=== PATIENT | female | born 1950 | race Caucasian/White ===

== ENCOUNTER 2017-04-29 08:04 | Day surgery (SDC) | payer OTHER ==
--- NOTE | 2017-04-25 12:03 | GHP ---
[f rep st] PREOP HISTORY AND PHYSICAL DATE OF PROCEDURE: 04/29/2017. PREPROCEDURE DIAGNOSIS: Left neck lymphadenopathy. HISTORY OF PRESENT ILLNESS: The patient is a 66-year-old woman who presented to the clinic with persistent posterior cervical lymphadenopathy. She has been aware of this since October 2016 when she had a routine physical exam done by her primary care. She reports the enlarged lymph nodes wax and wane in size. She denies any tenderness to palpation. She denies any recent illness, animal exposure, or travel. She denies a personal family history of cancer. She had 2 root canals and a tooth extraction performed in the last 6 months. She has had recent appointments with an promos executive producer and a dentist. She had a neck CT performed, which showed very extensive bilateral adenopathy in the subclavian, supraclavicular, jugular chain, posterior triangle, and submandibular regions. PAST MEDICAL HISTORY: Colon polyps, elevated glucose, hypertension, obesity, osteopenia, hearing loss, varicose veins, vitamin D deficiency. PAST SURGICAL HISTORY: Bilateral breast biopsies, benign; diagnostic thoracoscopy; tonsillectomy. MEDICATIONS: Irbesartan. ALLERGIES: Cipro. FAMILY HISTORY: Mother with dementia. Father with hypertension and prostate cancer. Aunt of lung cancer at 68. SOCIAL HISTORY: She is a former smoker. She denies recreational drug use. She denies alcohol use. REVIEW OF SYSTEMS: 10-point review of systems negative aside from HPI. PHYSICAL EXAMINATION: GENERAL: Well-developed, well-nourished woman, in no acute distress. HEENT: Normocephalic, atraumatic. No hearing deficits. Pupils equal and round. No scleral icterus. Mucous membranes moist. NECK: Trachea midline. RESPIRATORY: Clear to auscultation bilaterally. No increased work of breathing. CARDIOVASCULAR: Regular rate and rhythm. No peripheral edema. MUSCULOSKELETAL: Normal gait. Normal nails. SKIN: Warm and dry. PSYCH: Mood and affect normal. NEURO: Grossly intact. LYMPH: Bilateral posterior chain cervical lymphadenopathy. Nontender to palpation. No evidence of supraclavicular lymphadenopathy. Small palpable axillary lymph nodes bilaterally, not grossly enlarged. IMPRESSION AND PLAN: A 66-year-old woman with persistent posterior cervical lymphadenopathy, no identifiable etiology. We recommend excisional biopsy. We discussed risks including, but not limited to, heart attack, stroke, blood clots or . We discussed risk of infection, bleeding, or swelling. She had her questions answered to her satisfaction. She understands the risks and would like to proceed. The patient additionally seen by Dr. Ashley Strong, who agrees with the above impression and plan. /[id number]/MODL MTDD
[2017-04-29] MEDS ORDERED: ceFAZolin 2 GM/DEXTROSE 100 ML IV ONE (08:14)
[2017-04-29] MEDS ORDERED: LR 1,000 ML IV ONE (08:16)
[2017-04-29 08:29] VITALS: PULSE 63
[2017-04-29] MEDS ORDERED: ceFAZolin 3 GM in D5W 100 ML IV ONE (08:30)
--- NOTE | 2017-04-29 08:49 | PDHPUP ---
History & Physical Update H&P update statement: This history and physical update is based on an assessment of the patient which was completed after admission or registration (within 24 hours), but prior to the surgery/procedure. H&P update: H&P reviewed & patient examined, no change in patient's condition since H&P completed
[2017-04-29] MEDS ORDERED: HYDROmorphONE/DILAUDID 1 MG/ML SYR IVP PRN (08:59)
[2017-04-29] MEDS ORDERED: MIDAZOLAM 2 MG/2 ML VIAL ONE (08:59)
[2017-04-29] MEDS ORDERED: ALBUTEROL 3 ML DEYVIAL IH PRN (08:59)
[2017-04-29] MEDS ORDERED: NALOXONE HCL 0.4 MG/ML INJ IVP PRN (08:59)
[2017-04-29] MEDS ORDERED: ONDANSETRON 4 MG/2 ML VIAL IVP PRN (08:59)
[2017-04-29] MEDS ORDERED: LABETALOL HCL 50 MG/10 ML SYR IVP PRN (08:59)
[2017-04-29] MEDS ORDERED: fentaNYL 100 MCG/2 ML INJ IVP PRN (08:59)
[2017-04-29] MEDS ORDERED: MIDAZOLAM 2 MG/2 ML VIAL IVP ONE (08:59)
--- NOTE | 2017-04-29 09:00 | PDANEPAE ---
ANE History of Present Illness Left Neck biopsy ANE Past Medical History - Cardiovascular History Hx Hypertension: Yes Hx Arrhythmias: No Hx Chest Pain: No Hx Coronary Artery / Peripheral Vascular Disease: No Hx CHF / Valvular Disease: No Hx Palpitations: No - Pulmonary History Hx COPD: No Hx Asthma/Reactive Airway Disease: No Hx Recent Upper Respiratory Infection: No Hx Oxygen in Use at Home: No Hx Sleep Apnea: Yes Sleep Apnea Screening Result - Last Documented: Positive - Neurologic History Hx Cerebrovascular Accident: No Hx Seizures: No Hx Dementia: No - Endocrine History Hx Diabetes: No - Renal History Hx Renal Disorders: No - Liver History Hx Hepatic Disorders: No - Neurological & Psychiatric Hx Hx Neurological and Psychiatric Disorders: No - Cancer History Hx Cancer: No - Congenital Disorder History Hx Congenital Disorders: No - GI History Hx Gastrointestinal Disorders: No - Other Health History Other Health History: NEG - Chronic Pain History Chronic Pain: No - Surgical History Prior Surgeries: TONSILLECTOMY. THORACOSCOPY. ARMEN BREAST BIOPSY ANE Review of Systems - Exercise capacity METS (RN): 4 METS ANE Patient History - Allergies Allergies/Adverse Reactions: ciprofloxacin [From Cipro] Allergy (Mild, Verified 04/28/17 17:38) Rash - Home Medications Home Medications: Aspirin 04/28/17 [Last Taken 04/28/17 07:00] Irbesartan 04/28/17 [Last Taken 04/28/17 21:00] - NPO status NPO Since - Liquids (Date): 04/28/17 NPO Since - Liquids (Time): 22:00 NPO Since - Solids (Date): 04/28/17 NPO Since - Solids (Time): 20:00 - Smoking Hx Smoking Status: Former smoker - Family Anes Hx Family Hx Anesthesia Complications: NEG ANE Labs/Vital Signs - Vital Signs Blood Pressure: 149/76 Heart Rate: 63 Respiratory Rate: 16 O2 Sat (%): 92 Height: 167.64 cm Weight: 120.202 kg ANE Physical Exam - Airway Neck exam: FROM Mallampati Score: Class 2 - Pulmonary Pulmonary: clear to auscultation - Cardiovascular Cardiovascular: regular rate and rhythym - ASA Status ASA Status: III ANE Anesthesia Plan Anesthesia Plan: GA with mask
[2017-04-29] MEDS ORDERED: PROPOFOL/EMULSION 500 MG/50 ML BOTTLE IV ONE (09:05)
[2017-04-29] MEDS ORDERED: fentaNYL 100 MCG/2 ML INJ ONE (09:08)
[2017-04-29] MEDS ORDERED: DEXAMETHASONE 4 MG/ML VIAL ONE (09:44)
[2017-04-29] MEDS ORDERED: ONDANSETRON 4 MG/2 ML VIAL ONE (09:44)
[2017-04-29] MEDS ORDERED: LIDOCAINE 2% 5 ML SDV ONE (09:44)
--- NOTE | 2017-04-29 09:49 | POSTOPPROG ---
Post Op Note Date of Operation: 04/29/17 Surgeon: Ashley Strong Streetcar Dispatcher: Lizzie Anesthesiologist: Natalia Anesthesia: IV Sedation Pre-op Diagnosis: lymphadenopathy Post-op Diagnosis: same Indication: 66 yo with lymphadenopathy Procedure: Left deep posterior cervical lymph node biopsy Findings: enlarged lymph nodes Inf/Abcess present in the surg proc area at time of surgery?: No EBL: Minimal Specimen(s): micro and path
--- NOTE | 2017-04-29 10:14 | GOP ---
[f rep st] OPERATIVE REPORT DATE OF OPERATION: 04/29/2017 SURGEON: Ashley Strong MD INSPECTOR SCREEN PRINTING: Alee Samuel PA-C ANESTHESIA: Monitored anesthesia care with IV sedation. ANESTHESIOLOGIST: Samuel Fisher DO PREOPERATIVE DIAGNOSIS: Cervical lymphadenopathy. POSTOPERATIVE DIAGNOSIS: Cervical lymphadenopathy. PROCEDURE PERFORMED: Left deep posterior cervical lymph node excisional biopsy. FINDINGS: Enlarged lymph nodes. SPECIMENS: Microbiology and pathology. ESTIMATED BLOOD LOSS: Minimal. INDICATIONS: The patient is a 66-year-old woman who noticed enlarged lymph nodes. I performed a CT scan, and she had multiple abnormal lymph nodes throughout her neck. DESCRIPTION OF PROCEDURE: Chandrika was brought into the operating room, placed supine on the table, a nd IV sedation was performed. She was bumped on to her right side so that the left posterior neck w as exposed. Her neck was prepped and draped in the usual sterile fashion. I infiltrated the area w ith 10 cc of 0.5% Marcaine mixed with 1% lidocaine. I made an incision and continued my dissection with electrocautery down through the subcutaneous tissues. I then carefully dissected around a larg e vein and encountered a deep cervical lymph node. I excised this. I also found a 2nd enlarged lym ph node, which I also excised. I sent the specimen to microbiology and pathology. Hemostasis was ac hieved in the wound. The wound was closed with 3-0 Vicryl followed by 4-0 Monocryl. Dermabond appl ied. She was awakened in the operating room and transferred to PACU in stable condition. /[id number]/MODL
[2017-04-29 10:15] VITALS: TEMP 97.9
--- NOTE | 2017-04-29 10:42 | POSTANESTH ---
Post Anesthetic Evaluation Cardiovascular Status: Normal, Stable Respiratory Status: Normal, Stable Level of Consciousness/Mental Status: Can Participate in Eval, Alert and Oriented Pain Control: Adequate, Prn Tx Ordered Nausea/Vomiting Control: Adequate, Prn Tx Ordered Complications Possibly Related to Anesthesia: None Noted
[2017-04-29 10:51] VITALS: BP 106/52; RESP 16; O2SAT 93
[2017-05-03 14:44] LABS: FINAL DIAGNOSIS See Comments; MICROSCOPIC DESCRIPTION See Comments
== END 2017-04-29 11:25 | disposition home or self-care (01) ==
LOC: FSGY 08:04
PROVIDERS: ATTEND Surgery
PROC: 07B20ZX Excision of Left Neck Lymphatic, Open Approach, Diagnostic (ICD-10-PCS; principal; 2017-04-29 09:45)
DX: R59.1 Generalized enlarged lymph nodes (principal); I10 Essential (primary) hypertension; E66.9 Obesity, unspecified
CPT/HCPCS: 88184-90; 88185-91; J0690; J1100; J2250; J2405; J2704; J3010